=== PATIENT | male | born 1945 | race Hispanic/Latino ===

== ENCOUNTER → 2018-07-06 | Outpatient (CLI) | payer MEDICARE, OTHER ==
[~2018-07-06] MED LIST: TAMSULOSIN HCL0.4 MG PO
--- NOTE | 2018-07-06 17:41 | Diagnostic Imaging Report ---
EXAM: Lumbar spine radiographs-5 views INDICATION: Lumbosacral pain. COMPARISON: None. FINDINGS: BONES: Diffuse osteopenia. Mild dextroconvex curvature of the lumbar spine, centered at L1-L2. No acute displaced fractures. There are old healed fracture deformities within the left posterior 10th and 11th ribs. Vertebral body heights are preserved. DISCS: Mild degenerative disc changes, most pronounced at L5-S1. JOINTS: Mild facet degenerative changes, most pronounced at L5-S1. OTHER: Extensive atherosclerotic calcifications. Calcification in the right upper quadrant may represent a gallstone. Hyperdensities which may reflect clips project over the left mid and right lower abdomen. IMPRESSION: No acute radiographic abnormality. Mild degenerative disc changes and mild facet degenerative changes, most pronounced at L5-S1. Cholelithiasis. Old healed left posterior 10th and 11th rib fractures. Signed by: Dr. Roney Chapin MD on 07/06/2018 5:38 PM
== END ==
LOC: RAD 15:09
PROVIDERS: ATTEND Family Medicine
DX: M54.5 Low back pain (principal)
CPT/HCPCS: 72110

== ENCOUNTER → 2020-02-08 | Day surgery (SDC) | payer MEDICARE, OTHER ==
[2020-02-03 11:03] LABS: BASOPHILS % 0.3 % (0.0-1.0); EOSINOPHILS # (AUTO) 0.1 (0.0-0.4); EOSINOPHILS % 1.1 % (0.0-6.0); HEMOGLOBIN 16.6 g/dL (14.0-18.0); LYMPHOCYTES # (AUTO) 1.9 (1.0-3.2); LYMPHOCYTES % 26.9 % (18.0-39.1); MEAN CORPUSCULAR HEMOGLOBIN 30.5 pg (28-32); MEAN CORPUSCULAR HGB CONC 32.5 g/dL (31-35); MEAN CORPUSCULAR VOLUME 93.8 fL (81-99); MONOCYTES # (AUTO) 0.5 (0.2-0.8); NEUTROPHILS # (AUTO) 4.6 (2.1-6.9); NEUTROPHILS % 64.3 % (38.7-80.0); PLATELET COUNT 188 x10e3/uL (140-360); RED BLOOD COUNT 5.44 x10e6/uL (4.3-5.7); RED CELL DISTRIBUTION WIDTH 13.6 % (11.7-14.4)
[2020-02-03 11:44] LABS: ALANINE AMINOTRANSFERASE 26 IU/L (0-55); ALBUMIN 4.4 g/dL (3.5-5.0); ALBUMIN/GLOBULIN RATIO 1.3 (0.8-2.0); ALKALINE PHOSPHATASE 69 IU/L (40-150); ANION GAP 9.4 mmol/L (8-16); BLOOD UREA NITROGEN 10 mg/dL (7-26); BUN/CREATININE RATIO 11 (6-25); CALCIUM 8.4 mg/dL (8.4-10.2); CARBON DIOXIDE 30 mmol/L (22-29); CHLORIDE 104 mmol/L (98-107); CREATININE, SERUM 0.87 mg/dL (0.72-1.25); EST GLOMERULAR FILTRATION RATE > 60 ML/MIN (60-); GLUCOSE 103 mg/dL (74-118); POTASSIUM 4.4 mmol/L (3.5-5.1); SODIUM 139 mmol/L (136-145)
[2020-02-03 12:07] LABS: CHOLESTEROL 110 MD/DL (0-199); HDL CHOLESTEROL 37 MG/DL (40-60); LDL CHOLESTEROL 59 MG/DL (60-130); TRIGLYCERIDES 72 MG/DL (0-149)
[2020-02-08] VITALS (12 sets, daily range): BP systolic 95–130; BP diastolic 65–83
[~2020-02-08] VITALS: Ht 165.1 cm; Wt 68.9 kg
[~2020-02-08] MED LIST changes: +ASPIRIN 325 MG TAB ONE; +ASPIRIN81 MG PO; +CARVEDILOL3.125 MG PO; +CLOPIDOGREL BISULFATE 75 MG TAB ONE; +ENTRESTO 24 MG1 EACH PO; +FENTANYL CITRATE/PF 100MCG/2 ML INJ ONE; +HEPARIN SOD/SOD CHLORIDE 2,000 ML ONE; +IOPAMIDOL 370 MG/ML 200 ML INFUS..BTL INJ ONE; +LIDOCAINE HCL 2% LOCAL 20 ML VIAL ONE; +MIDAZOLAM HCL 2 MG/2 ML VIAL ONE; +ROSUVASTATIN CA10 MG PO; +SODIUM CHLORIDE 0.9% 1000ML 1,000 ML ONE; +VERAPAMIL HCL 2.5 MG/ML 2 ML VIAL ONE
--- NOTE | 2020-02-08 10:40 | NUR ---
1040 am Post-Op Receiving Thursday, January 17, 2019 0140a bedside report received from [place]. Alert oriented and appropriate, PERRLA, respirations even and unlabored to room air. Pulses x4 extremities equal and strong. Pedal pulses PT/DP X4 and marked. Cap fill brisk < 3 sec. Rt Tr-band site stable for air removal at 12n Skin warm and dry integrity appears D/I IV 20g to left hand presents healthy w/o s/s of infiltration or complaint. Abdomen soft and supple. pt offered toileting, denies need to urinate or defecate. No personal affects with patient. Family to arrive at 230pm dc home at 3pm. Pt verbalizes understanding of POC. with nurse turkmen speaking. Family to arrive for full post op teaching and presentation of papers.Talked to Linda on phone sister is aware of dc POC. Currently w/o complaint of pain or need.ds/rn
--- NOTE | 2020-02-08 12:00 | NUR ---
1200 RADIAL Compression removal: Initial Cuff volume 13 cc 1200 -3cc Removed No hematoma/bleeding noted with normal neurovascular function. 1215 -5cc Removed No hematoma/ bleeding noted with normal neurovascular function. 1230 -5cc Removed No hematoma/bleeding noted with normal neurovascular function. Air removal completed. Stasis achieved sterile 2x2,Tegaderm, Coban dressing No hematoma, bleeding noted with normal neurovascular function. Pt instructed on POC. Ds/Rn
--- NOTE | 2020-02-08 12:45 | Operative Report ---
DATE OF PROCEDURE: 02/08/2020 SURGEON: Will Davis MD PROCEDURE INDICATIONS: Angina pectoris, chronic systolic heart failure. PROCEDURES PERFORMED: 1. Left heart catheterization. 2. Selective coronary angiography. 3. Moderate sedation, 42 minutes. 4. RCA drug-eluting stent PCI. 5. Right radial TR band hemostasis. PROCEDURE COMPLICATIONS: None. ESTIMATED BLOOD LOSS: Less than 15 mL. PROCEDURE SUMMARY: After consent was obtained, the patient was prepped and draped in a sterile fashion. The right radial site was locally infiltrated with 2% lidocaine. Moderate sedation was administered with fentanyl and Versed. A 5-Canadian outer diameter Slender sheath was advanced to the right radial site and TIG catheter was used for engagement of left main, right coronary artery and to cross the aortic valve with hemodynamic measurements for interventional portion of procedure. A JR4 6-Canadian with side holes guide catheter was used, Runthrough wire and thereafter, Fielder XT wire were used for crossing the right coronary artery lesion and predilatation was performed using Emerge 2.5 x 20 to nominal pressures, followed by 2.75 x 32 Synergy drug-eluting stent positioned in the mid RCA and overlapping with the proximal Resolute Lincoln 3.0 x 34 Resolute drug-eluting stent, deployed to 16 atmospheres with postdilatation with 3.0 balloon to the overlapping segment and distal stent and the Synergy area of stent, and with an additional NC Quantum Mead 3.5 x 15 to 18 atmospheres for the proximal segment of the proximal stent and the Synergy stent. Preprocedure, stenosis of RCA 99% with DERICK-2 flow. Postprocedure, stenosis 0% with DERICK-3 flow. No dissections or perforations with stent strut apposition and expansion angiographically. Heparin to maintain an ACT over 250. Aspirin 325 mg and Plavix 600 mg were administered pre-intervention. At the end of procedure, TR band was applied. FINDINGS: 1. LV pressure is 101/12 with end-diastolic pressure of 18. 2. Aortic pressure is 98/58. 3. No left ventriculogram was performed. 4. Left main is large in caliber with luminal irregularities, gives an LAD and circumflex. 5. The LAD has luminal irregularities throughout, gives 2 diagonals and multiple septal perforators, grade 2 collaterals from the distal apical LAD and proximal RCA to distal RCA fill distal RCA somewhat grade 2 collaterals. 6. The left circumflex has proximal 30% stenosis. It gives 2 atrial branches and an obtuse marginal of medium caliber. 7. The right coronary artery is dominant, proximally has diffuse 80% stenosis and the mid segment has a 99% stenosis with DERICK-2 flow distal to it. The RPDA has luminal irregularities. The RPLV has focal 50% stenosis. CONCLUSION: RCA drug-eluting stent PCI. RECOMMEND: Aspirin and Plavix. Wean TR band, IV fluids. Follow up in office in 4 weeks. Will Davis MD AFV/MODL /[id number]
--- NOTE | 2020-02-08 15:00 | NUR ---
1500pm-Discharge CCL Nursing note Pt meets discharge criteria. VS Wnl, alert and oriented. Pt and Family Understands discharge instruction. Overall general assess w/o gross outliers. Skin warm, dry, and intact. Right radial dressing soft w/o s/s of hematoma. + neurovascular function of right hand present. IV removed and appears distal tip is intact. Pt maintains mask on for COVID 19 precautions being taken by wheel chair to awaiting car. Transfers w/o gross distress with discharge paperwork in hand.-ds/rn
== END | disposition home or self-care (01) ==
LOC: CATH LAB 08:05
PROVIDERS: ATTEND Internal Medicine Cardiovascular Disease
DX: I25.119 Atherosclerotic heart disease of native coronary artery with unspecified angina pectoris (principal); I11.0 Hypertensive heart disease with heart failure; I50.22 Chronic systolic (congestive) heart failure; E78.5 Hyperlipidemia, unspecified; F17.210 Nicotine dependence, cigarettes, uncomplicated; Z01.812 Encounter for preprocedural laboratory examination; Z11.59 Encounter for screening for other viral diseases; Z79.82 Long term (current) use of aspirin; Z95.810 Presence of automatic (implantable) cardiac defibrillator
CPT/HCPCS: 93458; C9600; 36415; 80053; 80061; 85025; 92928; 99152; 99153; C1725; C1769; C1874; C1876; C1887; J2001; J2250; J3010; J7030; Q9967

== ENCOUNTER → 2021-05-08 | Outpatient (CLI) | payer MEDICARE, OTHER ==
[~2021-05-08] MED LIST changes: -ASPIRIN 325 MG TAB ONE; -CLOPIDOGREL BISULFATE 75 MG TAB ONE; -FENTANYL CITRATE/PF 100MCG/2 ML INJ ONE; -HEPARIN SOD/SOD CHLORIDE 2,000 ML ONE; -IOPAMIDOL 370 MG/ML 200 ML INFUS..BTL INJ ONE; -LIDOCAINE HCL 2% LOCAL 20 ML VIAL ONE; -MIDAZOLAM HCL 2 MG/2 ML VIAL ONE; -SODIUM CHLORIDE 0.9% 1000ML 1,000 ML ONE; -VERAPAMIL HCL 2.5 MG/ML 2 ML VIAL ONE
== END ==
LOC: CT 15:15
PROVIDERS: ATTEND Family Medicine
DX: M54.16 Radiculopathy, lumbar region (principal)
CPT/HCPCS: 72131

== ENCOUNTER → 2021-08-20 | Outpatient (CLI) | payer MEDICARE, OTHER | LOC: RAD 13:07 | PROVIDERS: ATTEND Family Medicine | DX: M17.0 Bilateral primary osteoarthritis of knee (principal) ==

== ENCOUNTER → 2021-11-06 | Outpatient (CLI) | payer OTHER | LOC: RAD 12:52 | PROVIDERS: ATTEND Family Medicine | DX: M65.9 Synovitis and tenosynovitis, unspecified (principal) ==